=== PATIENT | female | born 1965 | race Caucasian/White ===

== ENCOUNTER 2018-04-09 11:15 | Emergency (ER) | payer MEDICAID ==
[~2018-04-09] VITALS: Ht 157.5 cm; Wt 104.3 kg
[~2018-04-09 11:15] MED LIST: ENAL5TAB85; paxil
[2018-04-09] MEDS ORDERED: PHENAZOPYRIDINE HCL 100 MG TAB PO ONE (12:45)
[2018-04-09] MEDS ORDERED: KETOROLAC TROMETH 60MG/2ML VIAL IM ONE (12:45)
[2018-04-09 14:20] VITALS: BP 142/76
== END 2018-04-09 14:44 | disposition home or self-care (01) ==
LOC: ER 11:17
DX: M54.41 Lumbago with sciatica, right side (principal); G89.29 Other chronic pain; R39.15 Urgency of urination; Z87.442 Personal history of urinary calculi; Z79.899 Other long term (current) drug therapy
CPT/HCPCS: 74176; 96372; 99284; J1885